=== PATIENT | male | born 1945 | race Caucasian/White ===

== ENCOUNTER → 2017-03-26 | Day surgery (SDC) | payer OTHER ==
[~2017-03-26] VITALS: Ht 175.3 cm; Wt 99.0 kg
[~2017-03-26] MED LIST: *RESP: ALBUTEROL 2.5 MG/3 ML NEB (PRN) PERIprocedural Use ONLY NEB ONE; ACETAMINOPHEN/HYDROcodone 325 MG/5 MG TAB PO PRN; CHLORHEXIDINE GLUCONATE 2 % 1 PACK (2 CLOTHS) TOPICAL PRN; DEXAMETHASONE SOD PHOS 4 MG/ML VIAL IV ONE; DO NOT ADM ANY ANTICOAGULANT DRUGS PRN; ESMOLOL HCL 100 MG/10 ML VIAL IV ONE; GABA100C4 PO; GELFOAM SIZE 100 ONE; GENTAMICIN SULFATE 80 MG/2 ML VIAL ONE; GLYCOPYRROLATE 1 MG/5 ML SYRINGE IV PUSH ONE; HYDR-3516 PO; LACTATED RINGER'S 1000 ML INJ 1,000 ML IV ONE; LACTATED RINGER'S 1000 ML INJ 1,000 ML IV SCH; LACTATED RINGER'S 1000 ML IV PRN; LIDOCAINE 2%/EPINEPHrine PF 1:200,000 20ML SDV ONE; LIDOCAINE HCL 1% PF 5 ML SYRINGE OTHER ONE; METOPROLOL TARTRATE 25 MG TAB PO PRN; MIDAZOLAM HCL 2 MG/2 ML VIAL ONE; MORPHINE SULFATE 2 MG/ML INJ IV PRN; NEOSTIGMINE 5 MG/5 ML SYRINGE IV PUSH ONE; ONDANSETRON HCL 4 MG/2 ML VIAL IV ONE; ONDANSETRON HCL 4 MG/2 ML VIAL IV PRN; PHENYLEPH/NS 1000 MCG/10 ML SYR IV ONE; POVIDONE IODINE 5% (ANTISEPSIS KIT) 4 APPLICATIONS EACH NARE PRN; PROPOFOL 200 MG/20 ML AMP IV ONE; ROCURONIUM INJ 50 MG/5 ML SYRINGE IV PUSH ONE; SODIUM CHLORID 0.9% 500 ML IV PRN; THROMBIN (TOPICAL) 5,000 UNIT VIAL ONE; TRAM50TA PO; ceFAZolin INJ 1,000 MG VIAL IV ONE; ePHEDrine/NS 25 MG/5 ML SYRINGE IV ONE
[2017-03-26] MEDS: ceFAZolin 1,000 MG/NS 100 ML IV PRN ×2 (08:45)
--- NOTE | 2017-03-26 12:35 | PD.OP ---
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 endotracheal Surgeon: Raul Wallace Material Distributor(s): Becki Shah Operation and Findings: Findings: Extensive hypertrophy left uncovertebral joint. No definite disc herniation noted. Severe left C5-6 foraminal stenosis. Procedure in detail: Patient was brought into the operating room and general endotracheal anesthesia induced without difficulty Leads for intraoperative neuro monitoring were placed Bilateral sequential compression devices were placed Patient was placed in supine position on the 3080 table with the head in neutral position on a gel cushion and all extremities were appropriately padded Appropriate timeout procedure was performed without personnel present and in agreement The neck and upper chest were prepped and draped in a sterile fashion 1% Xylocaine with epinephrine was used for local infiltration. Incision site which is made transversely on the right side of the neck at the C5-6 level and carried sharply down through the platysma muscle The exposure was continued medial to the sternocleidomastoid muscle and carotid artery and lateral to the trachea and esophagus which were gently retracted medially revealing the left lateral C5-6 anterior annulus . A single distraction pin was placed in the midline C5 level The longus coli muscle at the left C5-6 level was elevated away from the lateral anterior disc margin out to the level of the transverse process. The deep self-retaining retractor was placed with the medial blade against the midline distraction pin. The lateral most aspect of the annulus and disc at the C5-6 level was incised with a 15 blade knife and a small amount of disc at the level of the uncovertebral joint was removed with the micro-biopsy forceps. At the left C5-6 level, the TPS drill with the 5 mm bone erich followed by the 4 mm enrique bur was used to remove the medial aspect of the uncovertebral joint and bone surrounding the lateral most aspect of the intervertebral disc space down to the posterior margin of the uncovertebral joint and disc space. The Rhoton and thin ligament dissectors along with a 1 mm and 2 mm thin footplate Kerrison were then used to complete the removal of the posterior cortical margin of the uncovertebral joint and lateral posterior vertebral body along with the osteophyte at the uncovertebral joint surrounding the lateral disc space to complete the foraminotomy and resection of the majority of the uncovertebral joint except for the dorsolateral most aspect which was left in place for support. Hypertrophied ligament was elevated away from the exiting nerve root with the Rhoton dissector and resected with the Kerrison rongeur. The nerve root was carefully inspected under high-power magnification and probed with the micro-nerve hook to make certain that it was fully decompressed Bleeding was carefully controlled with the bipolar forceps and temporary application of Gelfoam and thrombin The central distraction pin was removed and the region well irrigated with antibiotic irrigation There was no significant bleeding at the time of closure Closure was performed with 3-0 Vicryl running for the platysma and interrupted for the subcutaneous closure with 4-0 Vicryl running subcuticular closure The dressing and sterile benzoin, Steri-Strips, and Primapore was placed The patient was taken to recovery room extubated and in stable condition All counts were correct at the end of the case Estimated blood loss was 100 cc No specimen was sent to pathology Raul Wallace MD Mar 26, 2017 12:35
--- NOTE | 2017-03-26 13:25 | RADRPT ---
EXAM DATE/TIME: 03/26/2017 09:05 [facility] COMPARISON: No previous studies available for comparison. INDICATIONS : Foraminotomy C5-6 MEDICAL HISTORY : SURGICAL HISTORY : None. ENCOUNTER: Initial ACUITY: 1 day PAIN SCORE: Non-responsive. LOCATION: Left cervical spine FINDINGS: Metallic screw is seen at C5 with 10 at C5-C6. CONCLUSION: Probes as described above.. Duglas Pérez MD FACR on March 26, 2017 at 13:22 Board Certified Radiologist. This report was verified electronically.
[2017-03-26 14:24] VITALS: BP 145/89; PULSE 96; RESP 18; TEMP 97.6; O2SAT 96
--- NOTE | 2017-03-26 19:25 | EKG ---
Date Performed: 03/26/2017 Time Performed: 07:20:36 PTAGE: 72 years EKG: Sinus rhythm LOW QRS VOLTAGE IN PRECORDIAL LEADS INFERIOR MYOCARDIAL INFARCTION , PROBABLY OLD ABNORMAL ECG NO PREVIOUS TRACING DOCTOR: Martina Rivas Interpretating Date/Time 03/26/2017 19:23:15
== END | disposition home or self-care (01) ==
LOC: HSDC 06:02
PROVIDERS: ATTEND Neurological Surgery
DX: M50.10 Cervical disc disorder with radiculopathy, unspecified cervical region (principal); M48.02 Spinal stenosis, cervical region; N40.0 Benign prostatic hyperplasia without lower urinary tract symptoms; J32.9 Chronic sinusitis, unspecified; H26.9 Unspecified cataract; Z85.828 Personal history of other malignant neoplasm of skin; Z01.810 Encounter for preprocedural cardiovascular examination
CPT/HCPCS: 00600; 63045; 72020; 76000; 87641; 93005; 94664; J0690; J1100; J1580; J2250; J2370; J2405; J2710; J3010; J7120; J7613